=== PATIENT | male | born 1960 | race Caucasian/White ===

== ENCOUNTER 2025-05-27 22:35 | Inpatient (IN) | payer MEDICARE, MEDICAID ==
[~2025-05-27] VITALS: Ht 182.9 cm; Wt 95.5 kg
[~2025-05-27 22:35] MED LIST: APIX2.5T PO; APIX5TAB3 PO; ATOR10TA87 PO; ATOR20TA PO; LEVE10002 PO; LEVE250T PO; MELO-100 PO; MELO-102 PO; QUET25TA PO; QUET25TA36 PO; TAMS-55 PO; VENL25TA48 PO
[2025-05-27 23:25] VITALS: BP 148/77; PULSE 57; RESP 16; TEMP 98.7; O2SAT 97
[2025-05-27] MEDS ORDERED: magnesium Cl slow-release 64mg tablet PO PRN (23:25)
[2025-05-27] MEDS ORDERED: magnesium hydroxide 30ml (MOM) UD suspension PO PRN (23:25)
[2025-05-27] MEDS ORDERED: magnesium sulf-water 4G/100mL 100 ML IV PRN (23:25)
[2025-05-27] MEDS ORDERED: magnesium sulf-water 2g/50mL 50 ML IV PRN (23:25)
[2025-05-27] MEDS ORDERED: ondansetron/PF 4mg/2ml inj IV PRN (23:25)
[2025-05-27] MEDS ORDERED: potassium Cl 20 mEq SR tablet PO PRN ×2 (23:25)
[2025-05-27] MEDS ORDERED: potassium Cl 40MEQ/1/2NS 520ml 520 ML IV PRN (23:25)
[2025-05-27] MEDS ORDERED: mag hydrox/Alum hydrox/simeth 30ml oral suspension PO PRN (23:25)
[2025-05-27 23:43] LABS: APTT 26 SECONDS (22-32); INR 1.0 INR
[2025-05-27 23:49] LABS: MEAN PLATELET VOLUME 7.6 FL (7.4-10.4); RED CELL DISTRIBUTION WIDTH 13.6 % (11.5-14.5)
[2025-05-28 00:08] LABS: CREATININE 1.02 MG/DL (0.60-1.10); TOTAL CARBON DIOXIDE 30.3 MMOL/L (24-32); eGFR 73 ML/MIN
--- NOTE | 2025-05-28 00:35 | RADIOLOGY REPORT ---
INDICATION: r/o LVO stroke COMPARISON: CT CT STROKE ALERT on DOS: 05/27/25 TECHNIQUE: CTA head without and with intravenous contrast. CTA neck with intravenous contrast. 3D image postprocessing was performed on a dedicated workstation and images were used for interpretation and reporting. Radiation Dose Information: CT Dose: CTDI volume is 16.13 mGy. Dose-length product is cm 70.41 mGy*cm FINDINGS: CTA head: There is normal enhancement of the visualized distal internal carotid, anterior and middle cerebral arteries. There is a normal anterior communicating artery complex. There are bilateral posterior communicating arteries. The vertebral, basilar, cerebellar and posterior cerebral arteries are within normal limits. The early parenchymal enhancement is grossly unremarkable. The visualized intracranial venous structures are grossly unremarkable. CTA neck: The visualized thoracic aortic arch and proximal great vessels are unremarkable. The left common, internal and external carotid arteries are within normal limits. The right common, internal and external carotid arteries are within normal limits. The cervical segments of the right and left vertebral arteries are within normal limits. The limited visualized lung apices are clear. The surrounding soft tissues and osseous structures are otherwise unremarkable. IMPRESSION: No evidence of hemodynamically significant intracranial stenosis, proximal occlusion or aneurysm. No evidence of hemodynamically significant cervical stenosis or dissection. All CT scans at this medical facility are performed using dose modulation techniques as appropriate to a performed exam including the following: Automated exposure control was utilized; adjustment of the MA and/or KV according to patient size; and use of iterative reconstruction technique.
[2025-05-28] MEDS: normal saline 1000ml 1,000 ML IV SCH (00:59)
--- NOTE | 2025-05-28 01:27 | HISTORY AND PHYSICAL-Residence ---
History & Physical Providers to CC Resident Creating Document: NEISHA SCALES RES ~ History of Present Illness Reason for Admit\Complaint: Acute CVA History of Present Illness This is a 64-year-old male was admitted to [facility] unit on the 27 of May for suicidal ideation. Around 8:30 p.m. in the evening, stroke alert was called. The patient was found to have new focal neurological deficits, where he had complete left upper and lower extremity weakness and complete loss of sensation on the left side, and patient was unable to speak. The teleneuro consultation was done immediately, IHSS was [address] head without IV contrast was done which showed no new acute CVA, and patient was recommended for CT Head w/ IV contrast since he is a candidate of thrombolysis. The stat dose of loading UT ASA 300 mg was given while awaiting CT head with IV contrast to confirm the ischemic stroke. As per the protocol patient was discharged from [facility] in order to be admitted to the neurology floor for further stroke workup and management. Patient head neck CTA was done and showed no abnormality, After which tele neuro was again consulted regarding the results, and recommended no current/immediate intervention needed, and asked us to follow-up with MRI of the brain to rule out stroke. On discussion with the neurologist over the phone, she was suspecting malingering as a component in this patient. By the time the patient underwent CTA and came up to the neurology floor, at the time of examination, he was almost back to his normal baseline state, was moving his left upper and lower extremity with some weakness present, was speaking clearly with no speech deficits. Allergies: Uncoded Allergies: bees (Allergy, Severe, 05/27/25) Home Medications Home Medications Active Reported Flomax* (Tamsulosin HCl) 0.4 Mg Cap.sr.24h 1 Cap PO HS Effexor (Venlafaxine Hcl) 25 Mg Tablet 75 Mg PO DAILY Flomax* (Tamsulosin HCl) 0.4 Mg Cap.sr.24h 1 Cap PO HS Effexor (Venlafaxine Hcl) 25 Mg Tablet 75 Mg PO DAILY Quetiapine Fumarate 25 Mg Tablet 1 Tab PO HS Meloxicam* (Meloxicam) 7.5 Mg Tablet 15 Mg PO DAILY Levetiracetam 250 Mg Tablet 1,000 Mg PO Q12H Eliquis (Apixaban) 5 Mg Tablet 1 Tab PO BID Lipitor* (Atorvastatin Calcium) 20 Mg Tablet 1 Tab PO DAILY Past Medical History Past Medical History Seizure disorder currently on medication Depression, anxiety Past Surgical History Surgical History Comment No significant surgical history Past Social History Social History Comment Patient stopped smoking years ago, currently does not smoke. Stopped drinking alcohol 31 years ago. No illicit drug use Patient lives at home with his son and [id number] ROS ROS Constitutional: Denies: Reports Generalized weakness Eyes: Denies: no symptoms reported ENT: Denies: no symptoms reported Respiratory: Denies: no symptoms reported Cardiovascular: Denies: no symptoms reported Gastrointestinal: Denies: No symptoms reported Genitourinary: Denies: no symptoms reported Neurological: Denies: Reports Mild left lower extremity weakness. Musculoskeletal: Denies: No symptoms reported Endocrine: Denies: no symptoms reported Gastrointestinal: Reports: No symptoms reported Genitourinary: Reports: No symptoms reported Exam Vitals: Vital Signs Date Time Temp Pulse Resp B/P (MAP) Pulse Ox O2 Delivery O2 Flow Rate FiO2 05/27/25 23:50 55 05/27/25 23:25 98.7 16 148/77 (100) 97 Room Air General: General: Awake HEENT: Conjunctive are pink, sclerae clear, no icterus, Neck: Supple, no JVD, no lymphadenopathy and thyromegaly. Chest: Equal air entry on both lungs, no added sounds, no wheeze. Cardiovascular: S1-S2 heard no gallops, no rubs, no murmurs Abdomen: soft, nontender, no guarding, no rigidity Extremities: Peripheral pulses well felt Central Nervous System: Right upper, lower extremity motor strength 5/5. Left upper extremity motor strength3/5, left lower extremity motor strength 3/5. Sensation preserved. Aphasia resolved, patient speaking clearly with no speech deficits, no deviation mouth. Reflexes normal, gait unable to elicit, normal rqnwlf-[id number] test. No other focal neurological signs seen. Skin: Warm and dry. Diagnostic Data Last Recorded Lab Results: 05/27/25204205/27/252042 Diagnostic Data: Laboratory Tests Test 05/27/25 20:43 Prothrombin Time 10.6 SECONDS (9.0-12.0) INR International Normalized Ratio 1.0 INR Activated Partial Thromboplast Time 26 SECONDS (22-32) Coagulation Comments Advance Care Planning Advanced Care plannin - 30 Minutes (Full code) Additional Plan Possible acute stroke VS TIA- -Patient had left side motor and sensory deficits -CT head showed no acute intracranial abnormality -CTA head neck showed No evidence of hemodynamically significant intracranial stenosis, proximal occlusion or aneurysm. No evidence of hemodynamically significant cervical stenosis or dissection. -Patient was given aspirin 300 mg UT. -Patient currently on home meds Eliquis, atorvastatin -HbA1c 5.6 -Lipid panel ordered follow-up -Echocardiogram , MRI head ordered please follow-up Seizure disorder- Patient currently on levetiracetam 250 mg Follow-up outpatient Suicidal ideation/depression- Patient transferred from [facility] unit for stroke workup. Patient currently on venlafaxine 75 mg Patient on 1798 hold Disposition- CT head, CTA head neck results were negative, tele neuro was consulted, awaiting results of MRI head. Patient's condition is improving. Code status: Full code DVT profile: Eliquis Diet: NPO Neisha Scales PGY-1 Patient assessed and plan was discussed with resident, agree with the H and P and assessment and plan above with no changes. Suzie Timmons MD Critical Care Date of Service: May 28, 2025 Billing Provider: SUZIE TIMMONS MD,NEISHA, RES May 28, 2025 01:27 SUZIE TIMMONS MD May 28, 2025 16:34
[2025-05-28 02:00] VITALS: BP 122/83; PULSE 60; RESP 15; TEMP 98.7; O2SAT 96
[2025-05-28 04:59] LABS: MEAN PLATELET VOLUME 7.3 FL (7.4-10.4); RED CELL DISTRIBUTION WIDTH 13.6 % (11.5-14.5)
[2025-05-28 05:33] LABS: CHOL/HDL RATIO 2.8 (0.00-4.99); CREATININE 0.89 MG/DL (0.60-1.10); LDL CHOLESTEROL 77 MG/DL (50-100); TOTAL CARBON DIOXIDE 28.9 MMOL/L (24-32); eCRCL 91 ML/MIN; eGFR 86 ML/MIN
[2025-05-28 06:00] VITALS: BP 128/71; PULSE 59; RESP 14; TEMP 98.4; O2SAT 96
[2025-05-28] MEDS: docusate sod 100mg capsule PO SCH (08:00)
[2025-05-28] MEDS: K and/or MAG REPLACEMENT MC SCH (08:00)
[2025-05-28 10:00] VITALS: BP 134/77; PULSE 68; RESP 16; TEMP 98.2; O2SAT 96
--- NOTE | 2025-05-28 10:18 | RADIOLOGY REPORT ---
EXAM: MR MRI HEAD HISTORY: Acute stroke TECHNIQUE: Multiplanar and multisequence MR imaging of the head was performed. COMPARISON: CT CTA NECK/HEAD on DOS: 05/27/25 FINDINGS: Generalized cerebral volume loss with concordant prominence of the subarachnoid spaces and ventricles. Mild patchy T2 hyperintensities in the cerebral white matter consistent with nonspecific white matter disease. There is no midline shift or mass effect. The vascular flow-voids are unremarkable. Diffusion weighted imaging is not indicative of acute or recent infarct. Small left mastoid air cell effusion. Mild paranasal sinus mucosal thickening. IMPRESSION: 1. No acute or recent infarct. 2. Generalized cerebral volume loss and minor chronic microvascular ischemic change.
--- NOTE | 2025-05-28 12:48 | PROGRESS NOTE- Residence ---
Progress Note - Resident Providers to CC Resident Creating Document: EVELIO ROSENBERG RES CC: KARLY MURPHY MD ~ Antibiotic Timeout Antibiotic Ordered?: No Subjective Patient was seen and examined at bedside with sitter, patient stated that he feels completely fine today. He stated that he does not have any left-sided numbness today. No other significant complaints were reported Objective Vital Signs Date Time Temp Pulse Resp B/P (MAP) Pulse Ox O2 Delivery O2 Flow Rate FiO2 05/28/25 10:00 98.2 68 16 134/77 (96) 96 Room Air Result Diagram: 05/28/2541605/28/25416 General: Awake, oriented to person, place and time HEENT: Conjunctive are pink, sclerae clear, no icterus, pupil is equal in both sides, reactive to light, no ear discharge, no pharyngeal erythema or an edema. Neck: Supple, no JVD, no lymphadenopathy and thyromegaly. Chest: Equal air entry on both lungs, no additional sounds no rhonchi no wheezing at the moment. Cardiovascular: S1-S2 regular sinus rhythm and, regular rate, no gallops, no rubs, no murmurs Abdomen: No visible peristalsis, Bowel sounds present on auscultation, soft, no tenderness, no guarding, no rigidity Extremities: No obvious deformities, no pitting edema bilaterally, capillary refill intact, peripheral pulsations are intact on both sides Neurologic: Mental status: alert and conscious, oriented to place, person and time, preserved memory, normal speech. Cranial nerves I-XII: Normal. Motor system: Preserved power, coordination, no evidenced involuntary movements, strength 5/5 in four extremities. Sensory system: Preserved temperature, pain and vibration sensation. 2+ deep tendon reflexes in biceps, triceps, quadriceps. Negative Babinski. Cerebellar: No nystagmus, dysdiadochokinesia, normal glfwii-gy-kzuv testing. Musculoskeletal: No joint swelling, deformities, inflammations, and no scoliosis and back tenderness Skin: Warm and dry. Dry oral mucosa. Coagulation Studies Laboratory Tests Test 05/27/25 20:43 Prothrombin Time 10.6 SECONDS (9.0-12.0) INR International Normalized Ratio 1.0 INR Activated Partial Thromboplast Time 26 SECONDS (22-32) Coagulation Comments Advance Care Planning Advanced Care plannin - 30 Minutes Assessment Assessment A 64-year-old male patient with past medical history of DVTs and pulmonary embolism, hyperlipidemia, seizure disorder was transferred from [facility] after stroke alert was called last night. Patient is currently being worked up for TIA/CVA Plan Plan Possible TIA, ruled out acute ischemic/hemorrhagic stroke Last night, patient was transferred from [facility] unit in view of left-sided motor and sensory deficits Per patient, he has had a previous left-sided motor and sensory deficits after seizures Tele Neurology was consulted, patient was out of the window period for thrombolytics, did not receive any thrombolytic CTA head and neck reveals no acute intracranial abnormality, MRI reported no acute abnormality. Patient received one time dose of aspirin 300 mg per rectal, echocardiogram pending Patient's A1c well controlled 5.6 Patient's LDL was elevated at 77 despite being on atorvastatin 20 mg, increase the dose to 40 mg, target < 55 Plan Continued patient's apixaban 5 mg b.i.d., continue atorvastatin 40 mg Physical therapy orders are in place Continue telemetry monitoring, fall precautions in place Seizure disorder Continue patient's home medication levetiracetam 1000 mg q.12h Ordered EEG, as recommended by psychiatry team Hyperlipidemia Patient's LDL elevated at 77, increased his home medication atorvastatin from 20 mg to 40 mg Target LDL <55 Recommended outpatient follow up with lipid profile in four weeks History of DVTs, pulmonary embolism Continue home medication Eliquis 5 mg b.i.d. Suicidal ideation/depression Patient transferred from [facility] unit for stroke workup. Patient denies any current suicidal ideation, consulted Psychiatry team, we will await their further expertise recommendation Continue venlafaxine 75 mg [address] Code Status: Full code DVT Prophylaxis: Eliquis Lines/Tubes: PIV Nutrition: Regular diet PT:yes Prognosis: Guarded Disposition: We will continue to monitor the patient for the next 24 hours, continue radiation monitor, we will discharge him back to [facility] the next 24-48 hours The above note has been reviewed and supervised by the senior resident PGY 2/PGY 3. Patient was seen and examined and discussed with attending physician Evelio Rosenberg MD Internal medicine resident,PGY-1 Date of Service: May 28, 2025 Billing Provider: KARLY MURPHY MD, JAHNAVI, RES May 28, 2025 12:48
[2025-05-28 14:00] VITALS: BP 132/75; PULSE 69; RESP 16; TEMP 97.6; O2SAT 94
[2025-05-28 18:00] VITALS: BP 134/80; PULSE 67; RESP 16; TEMP 97.2; O2SAT 96
--- NOTE | 2025-05-28 18:10 | CARDIOLOGY REPORT ---
APPROVED REPORT EXAM: Comprehensive 2D, Doppler, and color-flow Echocardiogram. Patient Location: [facility] [place] B Heart Rate: 50's bpm Rhythm: SINUS BRADYCARDIA Indications CEREBRAL VASCULAR ACCIDENT NO CONTRAST ORDERED Clerical Car Checker: Pieter RUIZ MD Previous echo: NONE AVAILABLE (AFTER HOURS) 2D Dimensions RVDd 4.1 cm IVSd 1.0 (0.7-1.1cm) LVDd 4.7 cm PWd 0.9 (0.7-1.1cm) IVSs 1.4 (0.8-1.2cm) LVDs 3.3 (2.5-4.0cm) PWs 1.4 (0.8-1.2cm) LVOT Diameter 2.20 (1.8-2.4cm) LVEF(%) 56.8 (>50%) FS (%) 29.7 % SV 57.5 ml CO 3.5 L/min M-Mode Dimensions Left Atrium(MM) 4.71 (2.5-4.0cm) Aortic Root 3.07 (2.2-3.7cm) Aortic Cusp Exc 1.83 (1.5-2.0cm) Aortic Valve AoV Peak Zan. 157.7 cm/s AoV VTI 27.7 cm AO Peak GR. 9.9 mmHg AO Mean GR. 5 mmHg LVOT VTI 23.94 cm LVOT Peak Zan. 123.1 cm/s YIMI(VTI)/BSA 3.29 cm2/m2 YIMI (VTI) 3.29 cm2 AV DI 0.86 % Mitral Valve MV E Velocity 65.3 cm/s MV DECEL TIME 244 ms MV A Velocity 70.8 cm/s E/A Ratio 0.9 TDI Lateral E' P. V 8.43 cm/s E/Lateral E' 7.7 Tricuspid Valve TR P. Velocity 175 cm/s RAP ESTIMATE 10 mmHg TR Peak Gr. 12 mmHg RVSP 22 mmHg Pulmonary Vein S1 Velocity 60.5 cm/s D2 Velocity 56.3 cm/s PVa Velocity 31.6 cm/s PVa Duration 124 msec LEFT VENTRICLE Normal LV size and wall thickness. Overall systolic function is normal. LVEF is 60%. RIGHT VENTRICLE RV is moderately dilated with normal function. ATRIA Left atrium is mildly dilated. AORTIC VALVE Trileaflet AV appears mildly sclerotic without stenosis. Trace insufficiency. MITRAL VALVE Mild MV annular calcification without stenosis. Trace regurgitation. TRICUSPID VALVE TV appears structurally normal with trace regurgitation. PULMONIC VALVE Normal PV without stenosis, physiologic insufficiency. GREAT VESSELS The aortic root is normal in size. PERICARDIUM Normal pericardium. No effusion. Other Information Study Quality: Adequate Conclusion Normal LV size and wall thickness. Overall systolic function is normal. LVEF is 60%. RV is moderately dilated with normal function. Left atrium is mildly dilated. Trileaflet AV appears mildly sclerotic without stenosis. Trace insufficiency. Mild MV annular calcification without stenosis. Trace regurgitation. TV appears structurally normal with trace regurgitation. Normal PV without stenosis, physiologic insufficiency. Normal pericardium. No effusion.
[2025-05-28 22:00] VITALS: BP 125/72; PULSE 63; RESP 17; TEMP 98.7; O2SAT 95
[2025-05-29] VITALS (7 sets, daily range): BP systolic 102–191; BP diastolic 51–73; PULSE 61–77; RESP 15–18; TEMP 97.8–98.3; O2SAT 94–98
[2025-05-29 05:44] LABS: MEAN PLATELET VOLUME 7.6 FL (7.4-10.4); RED CELL DISTRIBUTION WIDTH 13.5 % (11.5-14.5)
[2025-05-29 06:09] LABS: CREATININE 0.87 MG/DL (0.60-1.10); TOTAL CARBON DIOXIDE 27.2 MMOL/L (24-32); eCRCL 93 ML/MIN; eGFR 88 ML/MIN
[2025-05-29 09:29] LABS: INFLUENZA TYPE A ANTIGEN RAPID NEGATIVE (Negative); INFLUENZA TYPE B ANTIGEN RAPID NEGATIVE (Negative)
--- NOTE | 2025-05-29 13:01 | ELECTROCARDIOGRAPH REPORT ---
[facility] Test Date: 2025-05-29 Test Time: 12:59:05 Pat Name: CRUZ BRAY Department: [facility] Patient ID: [id number] Room: [place] [id number] B Gender: M [employer] Member: Karely Oscar : 1960 Requested By: EVELIO ROSENBERG Order Number: [id number] Reading MD: Dr. Benito Arias Measurements Intervals [place] Rate: 65 P: 53 [place]: 178 QRS: -20 QRSD: 102 T: 55 QT: 389 QTc: 405 Interpretive Statements Sinus rhythm Borderline left axis deviation Electronically Signed On 05-30-2025 11:02:[address] Benito Arias Please click the below link to view image of tracing.
[2025-05-29] MEDS: clotrimazole topical cream 15gm tube TP SCH (13:41)
[2025-05-29] MEDS: DICLOFENAC SODIUM 1% gel 1 50GM tube TP SCH (13:43)
[2025-05-29] MEDS: HALLS - SOOTHE MENTHOL 1.8 MG cough drop LOZENGE MM PRN (13:45)
--- NOTE | 2025-05-29 15:09 | PROGRESS NOTE- Residence ---
Progress Note - Resident Providers to CC Resident Creating Document: EVELIO ROSENBERG RES CC: KARLY MURPHY MD ~ Antibiotic Timeout Antibiotic Ordered?: No Subjective Patient was seen and examined at bedside with sitter, last night patient had congestion in his throat, had cough and he felt like he had another episode of COVID. Patient's name for COVID and it was negative. Patient also stated that he has a mild rash near his inter-inguinal region. Objective Vital Signs Date Time Temp Pulse Resp B/P (MAP) Pulse Ox O2 Delivery O2 Flow Rate FiO2 05/29/25 10:00 98.1 65 16 104/69 (81) 96 Room Air Result Diagram: 05/29/25 0459 05/29/25 0459 General: Awake, oriented to person, place and time HEENT: Conjunctive are pink, sclerae clear, no icterus, pupil is equal in both sides, reactive to light, no ear discharge, no pharyngeal erythema or an edema. Neck: Supple, no JVD, no lymphadenopathy and thyromegaly. Chest: Equal air entry on both lungs, no additional sounds no rhonchi no wheezing at the moment. Cardiovascular: S1-S2 regular sinus rhythm and, regular rate, no gallops, no rubs, no murmurs Abdomen: No visible peristalsis, Bowel sounds present on auscultation, soft, no tenderness, no guarding, no rigidity Extremities: No obvious deformities, no pitting edema bilaterally, capillary refill intact, peripheral pulsations are intact on both sides Neurologic: Mental status: alert and conscious, oriented to place, person and time, preserved memory, normal speech. Cranial nerves I-XII: Normal. Motor system: Preserved power, coordination, no evidenced involuntary movements, strength 5/5 in four extremities. Sensory system: Preserved temperature, pain and vibration sensation. 2+ deep tendon reflexes in biceps, triceps, quadriceps. Negative Babinski. Cerebellar: No nystagmus, dysdiadochokinesia, normal crrnay-vq-nvrr testing. Musculoskeletal: No joint swelling, deformities, inflammations, and no scoliosis and back tenderness Skin: Warm and dry. Dry oral mucosa. Coagulation Studies Laboratory Tests Test 05/27/25 20:43 Prothrombin Time 10.6 SECONDS (9.0-12.0) INR International Normalized Ratio 1.0 INR Activated Partial Thromboplast Time 26 SECONDS (22-32) Coagulation Comments Advance Care Planning Advanced Care plannin - 30 Minutes Assessment Assessment A 64-year-old male patient with past medical history of DVTs and pulmonary embolism, hyperlipidemia, seizure disorder was transferred from [facility] after stroke alert was called last night. Patient is currently being worked up for TIA/CVA Plan Plan Possible TIA, ruled out acute ischemic/hemorrhagic stroke Last night, patient was transferred from [facility] unit in view of left-sided motor and sensory deficits Per patient, he has had a previous left-sided motor and sensory deficits after seizures Tele Neurology was consulted, patient was out of the window period for thrombolytics, did not receive any thrombolytic CTA head and neck reveals no acute intracranial abnormality, MRI reported no acute abnormality. Patient received one time dose of aspirin 300 mg per rectal, echocardiogram pending Patient's A1c well controlled 5.6 Patient's LDL was elevated at 77 despite being on atorvastatin 20 mg, increase the dose to 40 mg, target < 55 Plan Continued patient's apixaban 5 mg b.i.d., continue atorvastatin 40 mg Physical therapy orders are in place Continue telemetry monitoring, fall precautions in place Seizure disorder Continue patient's home medication levetiracetam 1000 mg q.12h EEG has been performed Hyperlipidemia Patient's LDL elevated at 77, increased his home medication atorvastatin from 20 mg to 40 mg Target LDL <55 Recommended outpatient follow up with lipid profile in four weeks History of DVTs, pulmonary embolism Continue home medication Eliquis 5 mg b.i.d. Suicidal ideation/depression Patient transferred from [facility] unit for stroke workup. Patient denies any current suicidal ideation, consulted Psychiatry team, we will await their further expertise recommendation Continue venlafaxine 75 mg [address] Chief complaints of inguinal rash Appears to be jocker's itch Initiated the patient on 1% clotrimazole Code Status: Full code DVT Prophylaxis: Eliquis Lines/Tubes: PIV Nutrition: Regular diet PT:yes Prognosis: Guarded Disposition: Patient is medically cleared and stable for [facility] evaluation. build manager Ms. Maxwell has been notified The above note has been reviewed and supervised by the senior resident PGY 2/PGY 3. Patient was seen and examined and discussed with attending physician Evelio Rosenberg MD Internal medicine resident,PGY-1 Date of Service: May 29, 2025 Billing Provider: KARLY MURPHY MD, JAHNAVI, RES May 29, 2025 15:09
--- NOTE | 2025-05-29 18:12 | [facility] CONSULT REPORT ---
[facility] Procedure Note [facility] Procedure Note Consult [facility] Note # Demographics Type of EEG Read: - Routine EEG - video Patient Location: Inpatient First Name: Anton Last Name: Forest Date of : 1960 Age: 64 Gender: Male Facility: [facility] Time of Initial Page (): 05/29/2025 10:37 First Contact with Site (): 05/29/2025 11:36 # EEG Interpretation Start Time of EEG Read (): 05/29/2025 11:04 Stop Time of EEG Read (): 05/29/2025 11:30 Duration: 0h 26m Technical Details: - The EEG electrodes were placed using the standard International 10-20 system of electrode placement. Video and an accessory EKG lead were used during the course of this study. - This study was recorded using the [employer] EEG software Indication: Possible seizure # Description Photic Stimulation: Performed Hyperventilation: NOT performed Phases Captured: - awake Symmetry: symmetric Posterior Dominant Rhythm: The record is continuous, of normal amplitude and bilaterally symmetrical. There is a well-developed posterior dominant rhythm at 8-9 Hz. There is a moderate amount of diffuse low amplitude 15-25 Hz beta activity and an appropriate amount of 4-7 Hz theta activity during wakefulness. No significant <4 Hz delta activity is present during wakefulness. With drowsiness, there is attenuation of the background alpha activity and a shift to slower frequencies. Amplitude: normal Reactivity: yes Variability: yes Continuity: continuous EKG: NSR # Abnormalities Stimulation: - photic stimulation does NOT cause abnormalities Epileptiform Abnormalities: - NOT present Focal Slowing: no Seizure: - NOT present No push button events # Impression Impression: normal # Clinical Correlation Clinical Correlation: A normal EEG does not exclude nor support the diagnosis of epilepsy. Additional Comments: Clinical correlation is recommended # Demographics First Name: Anton Last Name: Forest Facility: [facility] KEVIN BONNER MD May 29, 2025 18:12
[2025-05-30 06:00] VITALS: BP 117/73; PULSE 66; RESP 14; TEMP 98.8; O2SAT 95
[2025-05-30 06:00] LABS: MEAN PLATELET VOLUME 7.4 FL (7.4-10.4); RED CELL DISTRIBUTION WIDTH 13.3 % (11.5-14.5)
[2025-05-30 06:05] LABS: CREATININE 0.97 MG/DL (0.60-1.10); TOTAL CARBON DIOXIDE 31.8 MMOL/L (24-32); eCRCL 83 ML/MIN; eGFR 78 ML/MIN
[2025-05-30] MEDS: MELOXICAM 7.5 MG TABLET PO SCH (09:48)
[2025-05-30 10:00] VITALS: BP 130/67; PULSE 76; RESP 16; TEMP 97.6; O2SAT 95
[2025-05-30] MEDS ORDERED: guaiFENesin/DM 10ml UD oral syrup PO PRN (10:00)
[2025-05-30 10:31] VITALS: RESP 16; O2SAT 95
[2025-05-30] MEDS ORDERED: ROBDML PO (11:58)
[2025-05-30] MEDS ORDERED: DICL20GE TP (11:58)
[2025-05-30] MEDS ORDERED: ATOR20TA66 PO (11:58)
[2025-05-30] MEDS ORDERED: CLOT15CR35 TP (11:58)
--- NOTE | 2025-05-30 12:29 | DISCHARGE SUMMARY-Residence ---
Discharge Summary Providers to CC Resident Creating Document: EVELIO ROSENBERG, SONIA CC: KARLY MURPHY MD ~ Discharge Summary Admission Diagnosis: Acute stroke Hospital Course DATE OF ADMISSION: DATE OF DISCHARGE: Discharge Diagnosis\Comment: Possible TIA, ruled out acute ischemic/hemorrhagic stroke Seizure disorder Hyperlipidemia History of DVTs, pulmonary embolism Suicidal ideation/depression Chief complaints of inguinal rash-jocker's itch Operations\Procedures: None Consultants: Teleneurologist-thaddeus Jones Complications: None Condition on DC: Stable New Medications: Atorvastatin Calcium (Atorvastatin Calcium) 20 Mg Tablet 40 MG PO DAILY for 30 Days, #60 TAB Clotrimazole (Clotrimazole) 1 % Cream.gm. 1 APPLIC TP BID for 14 Days, #1 TUBE Diclofenac Sodium (Voltaren Arthritis Pain) 1 % Gel..gram. 1 APPLIC TP BID for 14 Days, #1 UNIT Guaifenesin/D-Methorphan Hb (Robitussin Dm) 10 Ml Syrup 10 ML PO Q6H PRN for cough for 7 Days, #1 UNIT Continued Medications: Apixaban (Eliquis) 5 Mg Tablet 1 TAB PO BID Levetiracetam (Levetiracetam) 250 Mg Tablet 1000 MG PO Q12H Meloxicam* (Meloxicam*) 7.5 Mg Tablet 15 MG PO DAILY Quetiapine Fumarate (Quetiapine Fumarate) 25 Mg Tablet 1 TAB PO HS Tamsulosin Hcl* (Flomax*) 0.4 Mg Cap.sr.24h 1 CAP PO HS Venlafaxine Hcl (Effexor) 25 Mg Tablet 75 MG PO DAILY Discontinued Medications: Atorvastatin Calcium* (Lipitor*) 20 Mg Tablet 1 TAB PO DAILY Tamsulosin Hcl* (Flomax*) 0.4 Mg Cap.sr.24h 1 CAP PO HS Discharge Summary: HPI as per admitting physician: This is a 64-year-old male was admitted to [facility] unit on the 27 of May for suicidal ideation. Around 8:30 p.m. in the evening, stroke alert was called. The patient was found to have new focal neurological deficits, where he had complete left upper and lower extremity weakness and complete loss of sensation on the left side, and patient was unable to speak. The teleneuro consultation was done immediately, IHSS was [address] head without IV contrast was done which showed no new acute CVA, and patient was recommended for CT Head w/ IV contrast since he is a candidate of thrombolysis. The stat dose of loading CO ASA 300 mg was given while awaiting CT head with IV contrast to confirm the ischemic stroke. As per the protocol patient was discharged from [facility] [place] in order to be admitted to the neurology floor for further stroke workup and management. Patient head neck CTA was done and showed no abnormality, After which tele neuro was again consulted regarding the results, and recommended no current/immediate intervention needed, and asked us to follow-up with MRI of the brain to rule out stroke. On discussion with the neurologist over the phone, she was suspecting malingering as a component in this patient. By the time the patient underwent CTA and came up to the neurology floor, at the time of examination, he was almost back to his normal baseline state, was moving his left upper and lower extremity with some weakness present, was speaking clearly with no speech deficits. Hospital course: This is a 64-year-old male was admitted to [facility] unit on the 27 of May for suicidal ideation. Around 8:30 p.m. in the evening, stroke alert was called. The patient was found to have new focal neurological deficits, where he had complete left upper and lower extremity weakness and complete loss of sensation on the left side, and patient was unable to speak. The teleneuro consultation was done immediately, IHSS was [address] head without IV contrast was done which showed no new acute CVA, patient was given one time dose of 300 mg aspirin per rectal. Initiated the patient on telemetry monitoring and fall precautions were in place. Patient underwent MRI which reported no acute abnormality, acute ischemic/hemorrhagic stroke was ruled out. Patient returned to back to his previous baseline, could move all his extremities, no focal neurological deficits were noted. Patient has a history of DVTs and pulmonary embolism for which he has been on home medication Eliquis 5 mg b.i.d., we continued that medication as a choice of anticoagulant for this patient. Patient's LDL was elevated at 77, decreased patient's atorvastatin dose from 20 mg to 40 mg to keep a target of <55 LDL. Patient's A1c was well controlled at 5.6% Echocardiogram was done which showed normal systolic function with EF of 60%. Patient did not have any seizures during this course, we continued patient's home medications levetiracetam 100 mg q.12h, EEG was performed, impression was normal, did not show any active seizures. Patient complained of mild inguinal rash, most likely was a jocker's itch, gave the patient 1% clotrimazole cream and recommended to keep the area dry and clean. Patient was admitted to [facility] [place] for suicidal ideation/depression, we continu ed patient's home medication venlafaxine 75 mg and quetiapine 25 mg. Patient was put on [id number] hold for concerns of suicidal ideation/danger to self, once patient was medically cleared we be notified [facility] for evaluation, [facility] evaluated the patient and cleared the patient and stated that patient does not need any sitter as well. Patient is medically cleared to be discharged. SIGNIFICANT IMAGING Head/neck CTA 05/28/2025 No evidence of hemodynamically significant intracranial stenosis, proximal occlusion or aneurysm. No evidence of hemodynamically significant cervical stenosis or dissection. Head MRI 05/28/2025 1. No acute or recent infarct. 2. Generalized cerebral volume loss and minor chronic microvascular ischemic change. Echocardiogram 05/23/2025 Conclusion Normal LV size and wall thickness. Overall systolic function is normal. LVEF is 60%. RV is moderately dilated with normal function. Left atrium is mildly dilated. Trileaflet AV appears mildly sclerotic without stenosis. Trace insufficiency. Mild MV annular calcification without stenosis. Trace regurgitation. TV appears structurally normal with trace regurgitation. Normal PV without stenosis, physiologic insufficiency. Normal pericardium. No effusion. Physical examination the time of discharge General: Awake, oriented to person, place and time HEENT: Conjunctive are pink, sclerae clear, no icterus, pupil is equal in both sides, reactive to light, no ear discharge, no pharyngeal erythema or an edema. Neck: Supple, no JVD, no lymphadenopathy and thyromegaly. Chest: Equal air entry on both lungs, no additional sounds no rhonchi no wheezing at the moment. Cardiovascular: S1-S2 regular sinus rhythm and, regular rate, no gallops, no rubs, no murmurs Abdomen: No visible peristalsis, Bowel sounds present on auscultation, soft, no tenderness, no guarding, no rigidity Extremities: No obvious deformities, no pitting edema bilaterally, capillary refill intact, peripheral pulsations are intact on both sides Neurologic: Mental status: alert and conscious, oriented to place, person and time, preserved memory, normal speech. Cranial nerves I-XII: Normal. Motor system: Preserved power, coordination, no evidenced involuntary movements, strength 5/5 in four extremities. Sensory system: Preserved temperature, pain and vibration sensation. 2+ deep tendon reflexes in biceps, triceps, quadriceps. Negative Babinski. Cerebellar: No nystagmus, dysdiadochokinesia, normal uatspu-dv-tolh testing. Musculoskeletal: No joint swelling, deformities, inflammations, and no scoliosis and back tenderness Skin: Warm and dry. Dry oral mucosa. Vital Signs Date Time Temp Pulse Resp B/P (MAP) Pulse Ox O2 Delivery O2 Flow Rate FiO2 05/30/25 10:31 16 95 Room Air 05/30/25 10:00 97.6 76 130/67 (88) Laboratory Tests Test 05/29/25 04:59 05/29/25 08:50 05/30/25 05:19 White Blood Count 5.6 X10'3 4.9 X10'3 Red Blood Count 4.26 X10'6 4.15 X10'6 Hemoglobin 13.9 g/dl 13.8 g/dl Hematocrit 40.9 % 39.5 % Mean Corpuscular Volume 96.0 FL 95.3 FL Mean Corpuscular Hemoglobin 32.7 PG 33.3 PG Mean Corpuscular Hemoglobin Concent 34.0 g/dL 34.9 g/dL Red Cell Distribution Width 13.5 % 13.3 % Platelet Count 187 X10'3 187 X10'3 Mean Platelet Volume 7.6 FL 7.4 FL Neutrophils (%) (Auto) 73.8 % 55.8 % Lymphocytes (%) (Auto) 12.8 % 24.3 % Monocytes (%) (Auto) 11.0 % 15.4 % Eosinophils (%) (Auto) 2.0 % 3.8 % Basophils (%) (Auto) 0.4 % 0.7 % Neutrophils # (Auto) 4.1 X10'3 2.8 X10'3 Lymphocytes # (Auto) 0.7 X10'3 1.2 X10'3 Monocytes # (Auto) 0.6 X10'3 0.8 X10'3 Eosinophils # (Auto) 0.1 X10'3 0.2 X10'3 Basophils # (Auto) 0.0 X10'3 0.0 X10'3 CBC Comment Sodium Level 143 MMOL/L 143 MMOL/L Potassium Level 4.1 MMOL/L 4.8 MMOL/L Chloride Level 111 MMOL/L 110 MMOL/L Carbon Dioxide Level 27.2 MMOL/L 31.8 MMOL/L Anion Gap 5 1 Blood Urea Nitrogen 13 MG/DL 15 MG/DL Creatinine 0.87 MG/DL 0.97 MG/DL Estimated GFR/1.73 m2 88 ML/MIN 78 ML/MIN BUN/Creatinine Ratio 14.9 15.5 Glucose Level 112 MG/DL 106 MG/DL Calcium Level 7.9 MG/DL 8.0 MG/DL Magnesium Level 2.1 MG/DL 2.1 MG/DL Total Bilirubin 0.6 MG/DL 0.4 MG/DL Aspartate Amino Transf (AST/SGOT) 17 U/L 17 U/L Alanine Aminotransferase (ALT/SGPT) 28 U/L 27 U/L Alkaline Phosphatase 86 IU/L 92 IU/L Total Protein 6.1 G/DL 6.3 G/DL Albumin 3.2 G/DL 3.2 G/DL Globulin 2.9 G/DL 3.1 G/DL Albumin/Globulin Ratio 1.1 1.0 Chemistry Comments Influenza Type A Antigen Negative Influenza Type B Antigen Negative SARS-CoV-2 Antigen (Rapid) Negative Discharge advise Please follow up with your primary care doctor. We have increased your medication atorvastatin from 20 mg to 40 mg, continue dosage as prescribed and discussed with the primary care doctor. Please follow up with your psychiatrist. Return to ED in case of any shortness of breath, chest pain or palpitation *Problems/Diagnosis: (1) MDD (major depressive disorder) Total Time Spent on D/C: > 30 Minutes Date of Service: May 30, 2025 Billing Provider: KARLY MURPHY MD, JAHNAVI, RES May 30, 2025 12:06
== END 2025-05-30 12:40 | disposition home or self-care (01) | DRG 69 ==
LOC: EEVIPCON 22:35 → ORTHO 4S 22:35
PROVIDERS: ADMIT Internal Medicine; ATTEND Family Medicine
PROC: B3251ZZ Computerized Tomography (CT Scan) of Bilateral Common Carotid Arteries using Low Osmolar Contrast (ICD-10-PCS; 2025-05-28)
PROC: B32G1ZZ Computerized Tomography (CT Scan) of Bilateral Vertebral Arteries using Low Osmolar Contrast (ICD-10-PCS; 2025-05-28)
PROC: B32R1ZZ Computerized Tomography (CT Scan) of Intracranial Arteries using Low Osmolar Contrast (ICD-10-PCS; 2025-05-28)
PROC: B3281ZZ Computerized Tomography (CT Scan) of Bilateral Internal Carotid Arteries using Low Osmolar Contrast (ICD-10-PCS; 2025-05-28)
PROC: 4A00X4Z Measurement of Central Nervous Electrical Activity, External Approach (ICD-10-PCS; principal; 2025-05-29)
DX: G45.9 Transient cerebral ischemic attack, unspecified (principal); R45.851 Suicidal ideations; G40.909 Epilepsy, unspecified, not intractable, without status epilepticus; F32.A Depression, unspecified; E78.5 Hyperlipidemia, unspecified; B35.6 Tinea cruris; F41.9 Anxiety disorder, unspecified; Z20.822 Contact with and (suspected) exposure to COVID-19; R21 Rash and other nonspecific skin eruption; Z86.718 Personal history of other venous thrombosis and embolism; Z86.711 Personal history of pulmonary embolism; Z87.891 Personal history of nicotine dependence
CPT/HCPCS: 36415; 70496; 70498; 70551; 80053; 80061; 83036; 83735; 85025; 85610; 85730; 87081; 87804; 87811; 92508; 92616; 93005; 93306; 97116; 97161; 97530; G0378; J7030; Q9967

== ENCOUNTER 2025-06-18 22:12 | Emergency (ER) | payer MEDICARE, MEDICAID ==
[~2025-06-18] VITALS: Ht 182.9 cm; Wt 98.2 kg
[~2025-06-18 22:12] MED LIST changes: -APIX2.5T PO; -ATOR10TA87 PO; -ATOR20TA PO; +ATOR20TA66 PO; +CLOT15CR35 TP; +DICL20GE TP; -LEVE10002 PO; -MELO-102 PO; -QUET25TA PO; +ROBDML PO
[2025-06-18 22:20] VITALS: TEMP 97.6
[2025-06-18] MEDS ORDERED: OXYB5TAB21 PO (23:14)
--- NOTE | 2025-06-18 23:15 | Physician Documentation ---
History of Present Illness ~ Chief Complaint: Urinary Retention Stated Complaint: URINARY SYMPTOMS Time Seen by MD: 22:48 Mode of Arrival: Ambulatory HPI Patient presents to the emergency room for evaluation of urinary frequency. Has been going on for the past few weeks. He says in the evenings he has to go every 4-5 minutes in his lasts for a few hours. He did start Vimpat that has a new medication when symptoms began. He was seen in the clinic today where he says a urinalysis was performed which was completely clear of any signs of infection. He does have enlarged prostate and takes Flomax for this. Medication Reconciliation Allergies: Uncoded Allergies: bees (Allergy, Severe, 05/27/25) Scheduled Apixaban (Eliquis), 1 TAB PO BID, (Reported) Atorvastatin Calcium (Atorvastatin Calcium), 40 MG PO DAILY Clotrimazole (Clotrimazole), 1 APPLIC TP BID Diclofenac Sodium (Voltaren Arthritis Pain), 1 APPLIC TP BID Levetiracetam (Levetiracetam), 1,000 MG PO Q12H, (Reported) Meloxicam* (Meloxicam*), 15 MG PO DAILY, (Reported) Quetiapine Fumarate (Quetiapine Fumarate), 1 TAB PO HS, (Reported) Tamsulosin Hcl* (Flomax*), 1 CAP PO HS, (Reported) Venlafaxine Hcl (Effexor), 75 MG PO DAILY, (Reported) Scheduled PRN Guaifenesin/D-Methorphan Hb (Robitussin Dm), 10 ML PO Q6H PRN for cough Review of Systems ROS All review of systems negative except as per HPI Physical Exam Vital Signs: Temperature: 97.6, Source: Oral, Heart Rate: 67, Respiratory Rate: 18, BP: 128/84, Pulse Oximetry: 98, Weight: 98.180 Oxygen Flow Rate: 0 Physical Exam General: Patient is awake, alert, oriented x4 in no acute distress Head: Normocephalic and atraumatic. Eyes: Conjunctival normal. EOMI. PERRL. ENT: Mucous membranes moist. Neck: Supple, trachea is midline. Chest: Clear to auscultation bilaterally without rales, rhonchi, or wheezes. The re is no accessory muscle use or retractions. Cardiac: RRR without murmurs, gallops, or rubs. Abd: Soft, nondistended, nontender, with normoactive bowel sounds. No guarding, rebound, or rigidity. Progress Results/Orders Results/Orders Orders - SETH BACH MD Urinalysis, Cult If Indicated (06/18/25 22:48) Oxybutynin Cl Tablet (Ditropan Tablet) (06/18/25 23:10) Vital Signs 06/18/25 06/18/25 06/18/25 22:20 22:35 22:35 Temp 97.6 Pulse 67 67 Resp B/P (MAP) 124/83 128/84 (99) Pulse Ox 99 98 O2 Flow Rate 0 0 Medical Decision Making Additional information obtaine: N/A Findings Patient presented to the emergency room with urinary frequency. Differentials include but are not limited to urinary tract infection, urinary obstruction, overflow incontinence, overactive bladder, acute kidney injury therefore bladder scan was performed which was negative for retained urine. Given patient's negative urinalysis earlier today he had not feel repeat urinalysis that has necessary. I do not feel emergent labs are necessary that has continues to pee with no retention. We will treat him for overactive bladder with instructions follow up with his doctor which he has excellent follow up in five days. ER precautions reviewed regarding fevers or inability to urinate. Urinary Diff Dx:Considerations: Include: AAA, Aortic dissection, Appendicitis, Appendicitis train, Bowel obstruction, Bladder outlet obstruc., Cholelithiasis, Choleangitis, Cholecystitis, DJD, Epididymitis, Hepatitis, HNP, Impaction, Musculoskeletal pain, Pancreatitis, Postoperative Comp., Prostatitis, Pyelonephritis, Renal failure, Renal infarction, Strain, Urolithiasis, Urinary Obstruction, Urethritis, Urinary retention, UTI, Other Genital Diff Dx:Considerations: Include: Abscess, Balanitis, Balanoposthitis, Cellulitis, Epididymitis, Entrapment injury, Krystle's gangrene, Foreign body, Facture penis, Hydrocele, Inguinal hernia, Post-op Complication, Paraphimosis, Prostatitis, Priapism, Syphilis, Testicular torsion, Torsion-epididymis, Torsion-appendiceal, Urinary retention, Urethritis, Urethritis-chlamydial, Urethritis-gonococcal, UTI, Other Departure Disposition: HOME / SELF CARE / HOMELESS Impression: Primary Impression: Overactive bladder Condition: Stable Discharge Instructions: Overactive Bladder, Adult Referrals: NO PRIMARY CARE PROVIDER (PCP) Prescriptions Oxybutynin Chloride (Oxybutynin Chloride) 5 Mg Tablet 1 TAB PO TID for Overactive bladder, #30 TAB Prov: SETH BACH MD 06/18/25 Signature Scribe Signature: No scribe Attestation: The note accurately reflects work and decisions made by me.Seth Bach MD 06/18/25 23:15 SETH BACH MD Jun 18, 2025 23:15
[2025-06-19 00:03] LABS: LEUKOCYTE ESTERASE ,URINE NEGATIVE (Neg); NITRITES, URINE NEGATIVE (Neg); OCCULT BLOOD,URINE NEGATIVE (Neg)
[2025-06-19 00:05] LABS: UA COLLECTION TYPE URINAL
[2025-06-19 00:45] VITALS: BP 115/76; PULSE 56; RESP 20; O2SAT 98
== END 2025-06-19 00:47 | disposition home or self-care (01) ==
LOC: ER 22:13
DX: N32.81 Overactive bladder (principal); Z79.899 Other long term (current) drug therapy
CPT/HCPCS: 51798; 81003; 99284